=== PATIENT | female | born 1975 | race Asian ===

== ENCOUNTER 2021-08-09 11:27 | Emergency (ER) | payer BC ==
[~2021-08-09] VITALS: Ht 160 cm; Wt 65.8 kg
[2021-08-09 11:38] VITALS: BP 139/91
--- NOTE | 2021-08-09 11:40 | NUR ---
PT GURNEY TO BED VIA DS TO BED 5. PT PLACED IN GOWN AND PLACED ON HEART MONITOR AND BELONGINGS GIVEN TO SECURITY.
--- NOTE | 2021-08-09 11:57 | NUR ---
EKG READS NSR AT 99 HR ERMD NOTIFIED
--- NOTE | 2021-08-09 12:13 | NUR ---
CALLED [facility] S/W ELIZABETH, CASE #[id number]. RECOMMENDATION 6 HOUR OBSERVATION, EKG, ACETAMINOPHEN AND ALCOHOL LEVELS, URINE TOXICOLOGY SCREEN, CMP AND FLUIDS. DR. CASTLE MADE AWARE.
--- NOTE | 2021-08-09 12:18 | NUR ---
45/F BIBA FOR OVERDOSE AND SUICIDAL IDEATION. PATIENT STATES SHE HAS DAILY THOUGHTS OF HURTING HERSELF STATING "I ALWAYS FEEL DOWN." STATING TODAY SHE DRANK "6 BEERS" AND TOOK "3 UNKNOWN BOTTLES OF MEDICATIONS." PATIENT STATES THE ONLY MEDICATION SHE CAN RECALL OF THE 3 IS BENADRYL BUT STATES SHE IS UNSURE OF THE AMOUNT OF EACH SHE TOOK. PATIENT STATES "I AM OVER LIFE, I DO NOT WANT TO BE ALIVE." EMS STATES PATIENTS HANDED THEM A BOTTLE OF FLUOXETINE ON SCENE BUT PATIENT STATES THAT IS NOT THE MEDICATION SHE TOOK TODAY. PATIENT REPORTS NAUSEA, DENIES N/V, CP, SOB, HEADACHE, DIZZINESS, BLURRED VISION. 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 CASTLE AWARE OF PATIENT.
--- NOTE | 2021-08-09 12:25 | NUR ---
AMELIE HALL AND NOVEL SAMPLES COLLECTED AND WALKED TO LAB
[2021-08-09 12:44] LABS: BASOPHILS # (AUTO) 0.1 K/uL (0.00-0.22); BASOPHILS % (AUTO) 0.9 % (0.0-2.0); EOSINOPHILS # (AUTO) 0.1 K/uL (0-0.4); EOSINOPHILS % (AUTO) 1.1 % (0.0-4.0); HEMATOCRIT 36.3 % (36-48); LYMPHOCYTES # (AUTO) 2.9 K/uL (2.5-16.5); LYMPHOCYTES % (AUTO) 38.4 % (20.5-51.1); MEAN CORPUSCULAR HEMOGLOBIN 27 pg (27-31); MEAN CORPUSCULAR HGB CONC 33 g/dL (33-37); MEAN CORPUSCULAR VOLUME 82.4 fL (80-94); MONOCYTES # (AUTO) 0.4 K/uL (0.8-1.0); MONOCYTES % (AUTO) 5.2 % (1.7-9.3); NEUTROPHILS # (AUTO) 4.1 K/uL (1.8-7.7); NEUTROPHILS % (AUTO) 54.4 % (42.2-75.2); PLATELET COUNT (AUTO) 490 K/uL (140-450); RED BLOOD CELL COUNT(AUTO) 4.41 MIL/uL (4.20-5.40); RED CELL DISTRIBUTION WIDTH 15.5 % (11.6-13.7); WHITE BLOOD COUNT (AUTO) 7.6 K/uL (4.8-10.8)
[2021-08-09 13:07] LABS: ALBUMIN 3.9 g/dL (3.4-5.0); ANION GAP 18.9 (8-16); ASPARTATE AMINOTRANSFERASE 30 U/L (15-37); CARBON DIOXIDE 20.2 mmol/L (21-32); CHLORIDE 110 mmol/L (98-107); CREATININE 0.7 mg/dL (0.6-1.3); GFR ARICAN-AMERICAN 117 mL/min (>90); GLUCOSE 114 mg/dL (74-106); POTASSIUM 4.1 mmol/L (3.5-5.1); SODIUM SERUM 145 mmol/L (136-145); TOTAL BILIRUBIN 0.1 mg/dL (0.0-1.0); UREA NITROGEN, BLOOD 12 mg/dL (7-18)
[2021-08-09 13:09] LABS: ACETAMINOPHEN < 0.5 ug/ml (10-30); SALICYLATE < 2.8 mg/dL (2.8-20.0)
[2021-08-09 13:48] LABS: APPEARANCE,URINE CLEAR (CLEAR); BILIRUBIN,URINE NEGATIVE (NEGATIVE); BLOOD, URINE NEGATIVE (NEGATIVE); COLOR,URINE YELLOW (YELLOW); LEUKOCYTE ESTERASE ,URINE NEGATIVE (NEGATIVE); NITRITE, URINE NEGATIVE (NEGATIVE); UGLUCOSE NEGATIVE (NEGATIVE)
[2021-08-09 14:09] LABS: BARBITURATE, URINE NEGATIVE ng/ml (NEG <=200); BENZODIAZEPINE, URINE NEGATIVE ng/mL (NEG <=200); CANNABINOID, URINE NEGATIVE ng/mL (NEG <=50); COCAINE, URINE NEGATIVE ng/mL (NEG <=300); OPIATE, URINE NEGATIVE ng/mL (NEG <=2000); PHENCYCLIDINE SCREEN,URINE NEGATIVE ng/mL (NEG <=25)
[2021-08-09] MEDS ORDERED: ONDANSETRON 4 MG/2 ML VIAL IVP ONE (14:20)
--- NOTE | 2021-08-09 14:45 | NUR ---
PATIENT AMBULATED TO RESTROOM WITH STEADY GAIT.
--- NOTE | 2021-08-09 15:30 | NUR ---
PATIENT AMBULATED TO RESTROOM WITH STEADY GAIT.
--- NOTE | 2021-08-09 16:40 | NUR ---
RECEIVED CALL FROM DEN FROM [facility] FOR UPDATE ON PATIENT CONDITION AND LABS. RECOMMENDING REPEAT ASPIRIN LEVELS AND REPEAT EKG 4 HOURS AFTER FIRST EKG, DR. COLIN MADE AWARE.
--- NOTE | 2021-08-09 18:00 | NUR ---
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 VSS, WILL CONTINUE TO MONITOR.
[2021-08-09 19:10] LABS: SALICYLATE < 2.8 mg/dL (2.8-20.0)
--- NOTE | 2021-08-09 19:10 | NUR ---
PATIENT PROVIDED WITH DINNER TRAY AT BEDSIDE, STATES "IM NOT HUNGRY RIGHT NOW."
--- NOTE | 2021-08-09 19:17 | NUR ---
Pt report given to CHANTEL DANIEL. Transfer of care at this time.
--- NOTE | 2021-08-09 21:21 | NUR ---
Packet received for placement Fax to the following facilities [facility]
--- NOTE | 2021-08-09 22:01 | NUR ---
Patient has been accepted at [facility] [address] [place] [address] MD: Dr. Colon Unit: [place] Phone number for report [phone]
[2021-08-09] MEDS ORDERED: DOXY-487 PO (22:20)
--- NOTE | 2021-08-09 23:43 | NUR ---
CALLED AND GAVE REPORT TO MARÍA MARIEE
[2021-08-10] MEDS ORDERED: ONDANSETRON 4 MG ODT PO ONE (00:30)
[2021-08-10] MEDS ORDERED: ONDANSETRON 4 MG TAB ONE (00:32)
--- NOTE | 2021-08-10 00:49 | NUR ---
PT SLEEPING , EASILY AROUSABLE, NO C/O AT THIS TIME, NO DISTRESS AT THIS TIME.
[2021-08-10 00:53] VITALS: BP 106/71
--- NOTE | 2021-08-10 01:38 | NUR ---
[facility] AT BEDSIDE
--- NOTE | 2021-08-10 02:00 | NUR ---
PT TAKEN BY [facility] TO [facility]
== END 2021-08-10 02:00 ==
LOC: MED 11:27
DX: T43.222A Poisoning by selective serotonin reuptake inhibitors, intentional self-harm, initial encounter (principal); Z20.822 Contact with and (suspected) exposure to COVID-19; F10.129 Alcohol abuse with intoxication, unspecified; F17.200 Nicotine dependence, unspecified, uncomplicated; J45.909 Unspecified asthma, uncomplicated; Z98.890 Other specified postprocedural states; F32.9 Major depressive disorder, single episode, unspecified; Y92.89 Other specified places as the place of occurrence of the external cause
CPT/HCPCS: 36415; 80053; 80305; 81003; 81025; 85025; 87426; 93005; 96374; 99284; G0480; G0482; J2405; Q0162; U0003